=== PATIENT | female | born 1995 | race Caucasian/White ===

== ENCOUNTER 2016-11-16 16:13 | Emergency (ER) | payer OTHER ==
[~2016-11-16] VITALS: Ht 172.7 cm; Wt 64.8 kg
[2016-11-16 16:17] VITALS: TEMP 36.7; Ht 172.7 cm; Wt 64.8 kg
[2016-11-16] MEDS ORDERED: IUD PV (17:07)
[2016-11-16] MEDS ORDERED: HYDROCODONE/ACETAMOPHEN 5/325MG TAB PO STA (17:35)
--- NOTE | 2016-11-16 18:09 | DIAGNOSTIC IMAGING REPORT ---
SOFT TISSUE NECK CLINICAL HISTORY: Persistent sore throat COMPARISON STUDY: No previous studies for comparison. FINDINGS: The epiglottis is normal. Prevertebral soft tissues are unremarkable by radiography. The uvula is normal. IMPRESSION: Unremarkable radiographic appearance of the neck. Electronically signed by: Cristóbal Mariee M.D. 11/16/2016 6:07 PM Dictated Date/Time: 11/16/2016 6:07 PM
--- NOTE | 2016-11-16 18:10 | DIAGNOSTIC IMAGING REPORT ---
SINUSES MIN 3 VIEWS ROUTINE CLINICAL HISTORY: Persistent sore throat, headache COMPARISON STUDY: No previous studies for comparison. FINDINGS: No air-fluid levels are present. The sinuses are clear by radiography. Mastoid air cells appear well pneumatized. IMPRESSION: No sinus opacification identified by radiography. Electronically signed by: Cristóbal Mariee M.D. 11/16/2016 6:08 PM Dictated Date/Time: 11/16/2016 6:08 PM
[2016-11-16] MEDS ORDERED: METH4PAK PO (18:54)
[2016-11-16] MEDS ORDERED: FLUC150T PO (18:54)
[2016-11-16] MEDS ORDERED: HYDR-5688 PO (18:54)
[2016-11-16] MEDS ORDERED: AMOX875T PO (18:54)
--- NOTE | 2016-11-16 18:56 | EMERGENCY ROOM VISIT NOTE ---
History First contact with patient: 16:53 Chief Complaint: ILLNESS Stated Complaint: SEVERE THROAT, PAIN IN EAR, HEADACHE, CONGESTION History of Present Illness The patient is a 21 year old female who presents to the Emergency Room with complaints of sore throat 1 days. The patient states that she has had a persistent sore throat. She was initially seen at [facility] at the onset of symptoms and had a negative strep test. She states she followed up with [facility] and had a negative mono test there. She states her sore throat has been worsening and she now has bilateral ear pain, nasal congestion and occasional headaches. She rates her overall discomfort a 6/10. She was given viscous lidocaine and states this has not been helping. She saw [facility] this morning and states that they were able to make an appointment with ENT next week, but she wanted to be seen earlier since she came here for evaluation. He denies any difficulty swallowing but does state it is painful to swallow. She denies any difficulty breathing, neck swelling, chest pain, nausea or vomiting. She denies any fevers or chills. Review of Systems A complete 10-point Review of Systems was discussed with the patient, with pertinent positives and negatives listed in the History of Present Illness. All remaining Review of Systems questions can be considered negative unless otherwise specified. Social History Smoking Status: Never Smoker Current/Historical Medications Scheduled Amoxicillin & Pot Clavulanate (Augmentin 875-125 mg), 1 TAB PO BID Fluconazole (Diflucan), 150 MG PO DAILY Methylprednisolone (Medrol Dosepak), 0 PO DAILY [Iud], 1 PV [id number] Scheduled PRN Hydrocodone/Acetaminophen 5MG/325MG ([place] 5MG/325MG), 1-2 TABLET PO Q4H PRN for Pain Allergies Coded Allergies: No Known Allergies (Unverified , 11/16/16) Physical Exam Vital Signs Date Time Temp Pulse Resp B/P Pulse Ox O2 Delivery O2 Flow Rate FiO2 11/16/16 19:17 86 18 119/89 100 11/16/16 16:17 36.7 100 18 122/84 98 Room Air Physical Exam VITALS: Vitals are noted on the nurse's note and reviewed by myself. Vital signs stable. GENERAL: This is a 21-year-old female, tearful, nondiaphoretic, well-developed well-nourished. SKIN: The skin was without rashes. HEAD: Normocephalic atraumatic. EARS: External auditory canals clear, tympanic membranes pearly moore without erythema or effusion bilaterally. EYES: Pupils equal round and reactive to light and accommodation. Conjunctivae without injection, sclerae without icterus. Extraocular movements intact. NOSE: Patent, turbinates without inflammation or discharge. No sinus tenderness. MOUTH: Mucous membranes moist. Tonsils are not enlarged. Pharynx without erythema or exudate. Uvula midline. Airway patent. Tongue does not deviate. NECK: Supple without nuchal rigidity. No lymphadenopathy. No thyromegaly. HEART: Regular rate and rhythm without murmurs gallops or rubs. LUNGS: Clear to auscultation bilaterally without wheezes, rales or rhonchi. NEURO: Patient was alert and oriented to person place and time. Medical Decision & Procedures ER Provider Diagnostic Interpretation: SINUSES MIN 3 VIEWS ROUTINE FINDINGS: No air-fluid levels are present. The sinuses are clear by radiography. Mastoid air cells appear well pneumatized. IMPRESSION: No sinus opacification identified by radiography. SOFT TISSUE NECK FINDINGS: The epiglottis is normal. Prevertebral soft tissues are unremarkable by radiography. The uvula is normal. IMPRESSION: Unremarkable radiographic appearance of the neck. Medications Administered Medications (Trade) Dose Ordered Sig/Christopher Route Start Time Stop Time Status Last Admin Dose Admin Acetaminophen/ Hydrocodone Bitart ([place] 5/325 Tab) 1 tab NOW STAT PO 11/16/16 17:35 11/16/16 17:36 DC 11/16/16 18:20 1 TAB Medical Decision Differential diagnosis includes strep pharyngitis, mononucleosis, GERD, epiglottitis, retropharyngeal abscess, among others. The patient was evaluated as above. Her exam is unremarkable. There is no evidence of neck swelling. Her airway is patent. I did suggest that the patient could possibly have a component of GERD and she was adamant that that was not the cause of her symptoms. The patient has had a persistent sore throat for 3 weeks. For this reason, I did choose to perform lateral neck x- rays and sinus x-rays. Lateral neck x-ray was normal and did not show any airway narrowing. Sinus x-rays were unremarkable as well. The patient will be treated with Augmentin, in case these symptoms are secondary to postnasal drip/ sinusitis. She will also be placed on a steroid and given medication for pain. She was given 1 tablet [place] in the emergency department with some relief of her pain. She was encouraged to contact [facility] and pink the appointment next week with ENT. She will return here sooner for any new/ concerning symptoms. The patient's case was reviewed with Dr. Michaud, ED attending physician, who agreed with my assessment and treatment plan. She verbalized understanding of my assessment and treatment plan and was discharged home in good condition. [place] Drug Monitoring Program Search Results: patient reviewed within database, no issues identified Impression Primary Impression: Sore throat Departure Information Dispostion Home / Self-Care Condition GOOD Prescriptions Fluconazole (DIFLUCAN) 150 Mg Tab 150 MG PO DAILY for 1 Day, #2 TAB Take one dose at first sign of a yeast infection; take second dose if sxs persist in 3 days. Prov: Beulah Alarcon PA-C 11/16/16 Hydrocodone/Acetaminophen 5MG/325MG ([place] 5MG/325MG) Tab 1-2 TABLET PO Q4H Y for Pain, #20 TAB For Initial Treatment Prov: Beulah Alarcon PA-C 11/16/16 Methylprednisolone (MEDROL DOSEPAK) 4 Mg Alfredo 0 PO DAILY, #1 PKT Prov: Beulah Alarcon PA-C 11/16/16 Amoxicillin & Pot Clavulanate (Augmentin 875-125 mg) 1 Tab Tab 1 TAB PO BID for 10 Days, #20 TAB Prov: Beulah Alarcon PA-C 11/16/16 Referrals [facility] (PCP) Patient Instructions My [facility] Additional Instructions You were prescribed Augmentin to be taken twice daily as prescribed. This is an antibiotic. All antibiotics have the potential to cause diarrhea. Stop this medication and contact a medical provider if you were to develop any significant adverse side effects including: wheezing, shortness of breath, passing out, vomiting, or a diffuse rash. Always take antibiotics as directed and COMPLETE the ENTIRE course regardless of the improvement of your symptoms. You have been prescribed a Medrol Dosepak. This is a steroid which will help decrease your inflammation. Take the medicine as prescribed. Take the ENTIRE 6 day course of the steroids. You have been prescribed [place] to be used for pain control. Take 1-2 tablets every 4-6 hours as needed for pain. This is a narcotic medication. You cannot drive or consume alcohol while on this medicine. This medicine should only be used for pain that cannot be controlled with [id number] pain medicines. If he develops signs of a yeast infection, take one dose of Diflucan. If you have persistent in 3 days, you may take a second dose. If symptoms persist over the weekend, you may want to begin a medication like Prilosec. This is [id number] and you should take 1 pill every morning before eating. Follow-up with [facility] services/ENT. Return to the emergency department with difficulty breathing, difficulty swallowing or any other new/concerning symptoms.
[2016-11-16 19:17] VITALS: BP 119/89; PULSE 86; O2SAT 100
== END 2016-11-16 19:17 | disposition home or self-care (01) ==
LOC: C.EDB 16:15 → C.EDD 19:17
DX: J02.9 Acute pharyngitis, unspecified (principal)